=== PATIENT | female | born 1960 | race Caucasian/White ===

== ENCOUNTER 2016-09-27 19:43 | Emergency (ER) | payer OTHER ==
--- NOTE | ~2016-09-27 | CR211 ---
[facility] A Service of [facility] & [facility] RADIOLOGY TEXT RESULTS PATIENT: CHIKA PASTRANA LOCATION: CFTX : 58 UNIT #: [id number] AGE: [address]: Geovanna Jensen APRN SEX: F ORDER DR: [id number] [facility] [address]. [place], [place] [address] [id number] MR#: [id number] Acc #: [id number] NAME: CHIKA PASTRANA : 1960 SEX: F STUDY DATE/TIME: 09/27/2016 19:31 UNIT: [facility] ROOM: STUDY DESCRIPTION: CR Ribs Uni 2 View W PA Ch Rt Attending Physician: Geovanna Jensen A.P.R.N. Ordering Physician: Geovanna Jensen A.P.R.N. Primary Care Physician: Love Jones M.D. MEDICAL IMAGING REPORT This report is preliminary unless electronic signature is present EXAM Right rib series, with PA chest. INDICATIONS [place] pop wall coughing yesterday. FINDINGS PA view of the chest and oblique views of the right ribs were obtained. The heart size and vascularity are normal and the lungs are clear. Bones are unremarkable. There is no rib fracture visible. IMPRESSION Normal PA chest and right rib series. Dictated by... Jus Graf M.D. THIS IS AN ELECTRONICALLY VERIFIED REPORT Jus Graf M.D. at 09/29/2016 7:13 AM CLEVE/errol TD: 09/27/2016 23:12 JOB #: [id number] MEDICAL IMAGING REPORT Page 1 of 1 COPY
--- NOTE | ~2016-09-27 | EKG ---
PATIENT: CHIKA PASTRANA UNIT #: [id number] Ventricular Rate: 76 BPM Atrial Rate: 76 BPM P-R Interval: 144 ms QRS Duration: 90 ms Q-T Interval: 400 ms QTC Calculation(Bezet): 450 ms P [place]: 64 degrees Calculated R [place]: 66 degrees Calculated T [place]: -30 degrees Diagnosis Line: Normal sinus rhythm Diagnosis Line: Nonspecific ST and T wave abnormality Diagnosis Line: Abnormal ECG Diagnosis Line: When compared with ECG of 31-JUL-2015 19:17, Diagnosis Line: ST now depressed in Inferior leads Diagnosis Line: Nonspecific T wave abnormality now evident in Diagnosis Line: Inferior leads Diagnosis Line: T wave inversion no longer evident in Lateral Diagnosis Line: leads Diagnosis Line: QT has shortened Diagnosis Line: Confirmed by MARYAM DA SILVA MD ([id number]) on 09/28/2016 Diagnosis Line: 4:09:36 PM INTERPRETING MD: REKHA KEANE
[~2016-09-27 19:43] MED LIST: ACETAMINOPHEN650 M4 PO; ALBUTEROL17 G1 IH; BAYER CHEWABLE81 MG PO; COMBIVENT U/D3 M2 INH; DOXYCYCLINE150 MG PO; GUAIFENESIN600 M1 PO; NICOTINE TRANSD21 MG TD; NO MEDICATIONS; PHENERGAN DM1 ML PO; PREDNISONE10 MG PO; TAMIFLU75 M1 PO
[2016-09-27 20:03] LABS: POC - CKMB 2.2 ng/mL (0.0-7.9); POC - TROPONIN <0.05 ng/mL (<=0.05)
== END 2016-09-27 20:15 | disposition home or self-care (01) ==
LOC: CFTX 19:43
PROVIDERS: Nurse Practitioner
DX: S29.011A Strain of muscle and tendon of front wall of thorax, initial encounter (principal); J44.9 Chronic obstructive pulmonary disease, unspecified; F17.210 Nicotine dependence, cigarettes, uncomplicated; X58.XXXA Exposure to other specified factors, initial encounter; Y92.009 Unspecified place in unspecified non-institutional (private) residence as the place of occurrence of the external cause
CPT/HCPCS: 36415; 71101; 82553; 84484; 93005; 99284